=== PATIENT | male | born 1950 | race Caucasian/White ===

== ENCOUNTER 2019-08-05 06:30 | Day surgery (SDC) | payer MEDICARE ==
[2019-08-03 16:33] LABS: BASOPHILS % (AUTO) 0.6 % (0-1); EOSINOPHILS # (AUTO) 0.3 X10'3 (0-0.9); EOSINOPHILS % (AUTO) 3.4 % (0-6); HEMATOCRIT 41.4 % (42.0-52.0); HEMOGLOBIN 13.7 g/dl (14.0-17.9); LYMPHOCYTES # (AUTO) 3.2 X10'3 (1.1-4.8); LYMPHOCYTES % (AUTO) 36.9 % (21-51); MEAN CORPUSCULAR HEMOGLOBIN 31.5 PG (27.0-31.0); MEAN CORPUSCULAR HGB CONC 33.1 g/dL (33.0-36.5); MEAN CORPUSCULAR VOLUME 95.3 FL (78-98); MONOCYTES # (AUTO) 0.7 X10'3 (0-0.9); MONOCYTES % (AUTO) 8.5 % (2-12); NEUTROPHILS # (AUTO) 4.4 X10'3 (1.8-7.7); NEUTROPHILS % (AUTO) 50.6 % (42-75); PLATELET COUNT 298 X10'3 (140-440); RED BLOOD COUNT 4.34 X10'6 (4.70-6.10); RED CELL DISTRIBUTION WIDTH 20.5 % (11.5-14.5); WHITE BLOOD COUNT 8.8 X10'3 (4.5-11.0)
[2019-08-03 16:56] LABS: PARTIAL THROMBOPLASTIN TIME 28 SECONDS (22-32)
[2019-08-03 17:22] LABS: ALBUMIN 3.1 G/DL (3.4-5.0); ANION GAP 7 (8-16); BLOOD UREA NITROGEN 20 MG/DL (7-18); BUN/CREATININE RATIO 21.1 (5.4-32.0); CALCIUM 8.7 MG/DL (8.5-10.1); CHLORIDE 107 MMOL/L (99-107); CREATININE 0.95 MG/DL (0.60-1.10); GLUCOSE 74 MG/DL (70-104); POTASSIUM 3.6 MMOL/L (3.5-5.1); SODIUM 139 MMOL/L (135-145); eGFR 79 ML/MIN
[2019-08-03 17:57] LABS: PLATELET ESTIMATE NORMAL
[2019-08-03 17:58] LABS: ANISOCYTOSIS 2+; SPHEROCYTES FEW
[2019-08-05] VITALS (14 sets, daily range): BP systolic 96–137; BP diastolic 57–76
[~2019-08-05] VITALS: Ht 180.3 cm; Wt 79.2 kg
[~2019-08-05 06:30] MED LIST: ASPI81TA30 PO; CALC1TAB96 PO; GABA600T13 PO; HYDR-4353 PO; LISI40TA4 PO; MULT-38 PO; OMEGA
[2019-08-05] MEDS ORDERED: MIDAZolam 1mg/ml 10ml vial IV ONE (06:55)
[2019-08-05] MEDS ORDERED: fentaNYL/PF 50MCG/1 ML 2ML syringe IV ONE (06:55)
[2019-08-05] MEDS ORDERED: APIX5TAB3 PO (07:13)
[2019-08-05] MEDS ORDERED: DIGO125T PO (07:13)
[2019-08-05] MEDS ORDERED: AMIT-189 PO (07:13)
[2019-08-05] MEDS ORDERED: FURO-150 PO (07:13)
[2019-08-05] MEDS ORDERED: SOTA120T9 PO (07:13)
[2019-08-05] MEDS ORDERED: cannabis INH (07:13)
== END 2019-08-05 10:10 | disposition home or self-care (01) ==
LOC: SSTAY O 06:30
PROVIDERS: ATTEND Internal Medicine Interventional Cardiology
DX: I48.91 Unspecified atrial fibrillation (principal); I10 Essential (primary) hypertension; I35.0 Nonrheumatic aortic (valve) stenosis; I65.23 Occlusion and stenosis of bilateral carotid arteries; I34.0 Nonrheumatic mitral (valve) insufficiency; F17.290 Nicotine dependence, other tobacco product, uncomplicated; Z79.899 Other long term (current) drug therapy; Z88.5 Allergy status to narcotic agent; Z88.1 Allergy status to other antibiotic agents
CPT/HCPCS: 36415; 80048; 85025; 85610; 85730; 92960; 93005; 94760; J2250; J3010

== ENCOUNTER 2019-08-17 13:54 | Outpatient (CLI) | payer MEDICARE ==
[~2019-08-17] VITALS: Ht 180.3 cm; Wt 79.4 kg
[~2019-08-17 13:54] MED LIST changes: +AMIT-189 PO; +APIX5TAB3 PO; -ASPI81TA30 PO; +DIGO125T PO; +FURO-150 PO; -HYDR-4353 PO; -LISI40TA4 PO; +SOTA120T9 PO; +cannabis INH
[2019-08-17] MEDS ORDERED: albuterol 2.5 MG/3 ML nebule NEB ONE (14:30)
== END 2019-08-17 23:59 | disposition home or self-care (01) ==
LOC: RT 13:54
PROVIDERS: ATTEND Specialist
DX: J44.9 Chronic obstructive pulmonary disease, unspecified (principal); R06.02 Shortness of breath; J98.8 Other specified respiratory disorders
CPT/HCPCS: 94060; 94727; 94729; 94760

== ENCOUNTER 2020-12-27 12:30 | Inpatient (IN) | payer MEDICARE ==
[~2020-12-27] VITALS: Ht 177.8 cm; Wt 84.1 kg
[~2020-12-27 12:30] MED LIST changes: +CALC-1205 PO; -CALC1TAB96 PO
[2020-12-27 13:41] LABS: EOSINOPHILS % (AUTO) 0.2 % (0-6); HEMOGLOBIN 13.7 g/dl (14.0-17.9); LYMPHOCYTES # (AUTO) 1.2 X10'3 (1.1-4.8); MONOCYTES # (AUTO) 0.6 X10'3 (0-0.9); NEUTROPHILS # (AUTO) 4.5 X10'3 (1.8-7.7); RED BLOOD COUNT 3.88 X10'6 (4.70-6.10)
[2020-12-27 13:42] LABS: BASOPHILS # (AUTO) 0.2 X10'3 (0-0.2); HEMATOCRIT 41.8 % (42.0-52.0); MEAN CORPUSCULAR HEMOGLOBIN 35.3 PG (27.0-31.0); MEAN CORPUSCULAR HGB CONC 32.8 g/dL (33.0-36.5); MEAN CORPUSCULAR VOLUME 107.8 FL (78-98); MEAN PLATELET VOLUME 10.5 FL (7.4-10.4); PLATELET COUNT 203 X10'3 (140-440); RED CELL DISTRIBUTION WIDTH 14.4 % (11.5-14.5); WHITE BLOOD COUNT 6.4 X10'3 (4.5-11.0)
[2020-12-27 13:46] LABS: BASOPHILS % (AUTO) 0.2 % (0-1); LYMPHOCYTES % (AUTO) 19.5 % (21-51); MONOCYTES % (AUTO) 8.9 % (2-12); NEUTROPHILS % (AUTO) 71.2 % (42-75)
[2020-12-27 13:56] LABS: ALANINE AMINOTRANSFERASE 69 U/L (12-78); ALBUMIN/GLOBULIN RATIO 0.7 (1.1-1.5); ALKALINE PHOSPHATASE 117 IU/L (46-116); ANION GAP 10 (8-16); ASPARTATE AMINO TRANSFERASE 73 U/L (10-37); BILIRUBIN,TOTAL 1.8 MG/DL (0.1-1.0); BLOOD UREA NITROGEN 21 MG/DL (7-18); BUN/CREATININE RATIO 17.4 (5.4-32.0); CALCIUM 8.7 MG/DL (8.5-10.1); CHLORIDE 95 MMOL/L (99-107); CREATININE 1.21 MG/DL (0.60-1.10); GLUCOSE 109 MG/DL (70-104); POTASSIUM 4.5 MMOL/L (3.5-5.1); SODIUM 130 MMOL/L (135-145); TOTAL PROTEIN 7.1 G/DL (6.4-8.2); eGFR 60 ML/MIN
[2020-12-27 13:57] LABS: PARTIAL THROMBOPLASTIN TIME 35 SECONDS (22-32)
[2020-12-27 14:11] LABS: PLATELET ESTIMATE NORMAL
[2020-12-27 14:12] LABS: BURR CELLS 2+; LARGE PLATELETS FEW
[2020-12-27] MEDS ORDERED: iohexol 350MG/ML 100ml bottle IV ONE (15:35)
[2020-12-27] MEDS ORDERED: heparin 10,000 units/1 ML INJ IV ONE (19:35)
[2020-12-27] MEDS ORDERED: potassium Cl 20 mEq SR tablet PO PRN (19:35)
[2020-12-27] MEDS ORDERED: mag hydrox/Alum hydrox/simeth 30ml oral suspension PO PRN (19:35)
[2020-12-27] MEDS ORDERED: potassium Cl 40MEQ/1/2NS 520ml 520 ML IV PRN ×2 (19:35)
[2020-12-27] MEDS ORDERED: PERFLUTREN PROTEIN-A MICROSPHR (Optison) 0.22 MG/ML 3ML VIAL IV ONE (19:35)
[2020-12-27] MEDS ORDERED: ondansetron/PF 4mg/2ml inj IV PRN (19:35)
[2020-12-27] MEDS ORDERED: heparin 10,000 units/1 ML INJ IV PRN (19:35)
[2020-12-27] MEDS ORDERED: magnesium hydroxide 30ml (MOM) UD suspension PO PRN (19:35)
[2020-12-27] MEDS ORDERED: acetaminophen 325mg tablet PO PRN (19:35)
[2020-12-27] MEDS ORDERED: ALBU17AE26 IH (20:41)
[2020-12-27] MEDS ORDERED: OMEG1CAP46 PO (20:41)
[2020-12-27] MEDS ORDERED: METO100T14 PO (20:41)
[2020-12-27] MEDS ORDERED: ATOR40TA72 PO (20:41)
[2020-12-27] MEDS ORDERED: GABA300C PO (20:41)
[2020-12-27] MEDS ORDERED: PANT40TA54 PO (20:44)
[2020-12-27] MEDS ORDERED: albuterol 2.5 MG/3 ML nebule NEB PRN (21:35)
[2020-12-27] MEDS: K and/or MAG REPLACEMENT MC SCH (22:35)
[2020-12-27] MEDS: furosemide 10 MG/1 ML 10ml inj IV SCH (22:35)
[2020-12-27] MEDS: docusate sod 100mg capsule PO SCH (22:36)
[2020-12-27] MEDS: heparin 25,000 UNIT/250ml bag 250 ML IV SCH (22:50)
[2020-12-28] VITALS: BP 106/57
--- NOTE | 2020-12-28 05:20 | NUR ---
reviewed and edited SRN assessment.
--- NOTE | 2020-12-28 05:58 | NUR ---
Problems reprioritized. Patient report given, questions answered & plan of care reviewed with BETH Cortes. Addendum: 12/28/20 at 0644 by Carmen Aleman RN lulu not here, jet was given report.
[2020-12-28 06:25] LABS: EOSINOPHILS # (AUTO) 0.1 X10'3 (0-0.9); LYMPHOCYTES # (AUTO) 1.8 X10'3 (1.1-4.8); NEUTROPHILS # (AUTO) 4.5 X10'3 (1.8-7.7)
[2020-12-28 06:27] LABS: BASOPHILS % (AUTO) 0.5 % (0-1); EOSINOPHILS % (AUTO) 1.3 % (0-6); HEMATOCRIT 39.2 % (42.0-52.0); HEMOGLOBIN 12.9 g/dl (14.0-17.9); MEAN CORPUSCULAR HEMOGLOBIN 35.4 PG (27.0-31.0); MEAN CORPUSCULAR VOLUME 107.4 FL (78-98); MEAN PLATELET VOLUME 10.9 FL (7.4-10.4); MONOCYTES # (AUTO) 0.8 X10'3 (0-0.9); MONOCYTES % (AUTO) 10.8 % (2-12); NEUTROPHILS % (AUTO) 62.4 % (42-75); PLATELET COUNT 196 X10'3 (140-440); RED BLOOD COUNT 3.65 X10'6 (4.70-6.10); WHITE BLOOD COUNT 7.3 X10'3 (4.5-11.0)
[2020-12-28 06:37] LABS: ALANINE AMINOTRANSFERASE 74 U/L (12-78); ALBUMIN 2.9 G/DL (3.4-5.0); ALBUMIN/GLOBULIN RATIO 0.8 (1.1-1.5); ALKALINE PHOSPHATASE 120 IU/L (46-116); ANION GAP 7 (8-16); ASPARTATE AMINO TRANSFERASE 72 U/L (10-37); BILIRUBIN,TOTAL 1.2 MG/DL (0.1-1.0); BLOOD UREA NITROGEN 24 MG/DL (7-18); BUN/CREATININE RATIO 17.9 (5.4-32.0); CALCIUM 8.8 MG/DL (8.5-10.1); CHLORIDE 99 MMOL/L (99-107); CREATININE 1.34 MG/DL (0.60-1.10); GLUCOSE 131 MG/DL (70-104); POTASSIUM 3.8 MMOL/L (3.5-5.1); SODIUM 136 MMOL/L (135-145); TOTAL CARBON DIOXIDE 30.3 MMOL/L (24-32); TOTAL PROTEIN 6.6 G/DL (6.4-8.2); eGFR 53 ML/MIN
[2020-12-28 07:00] VITALS: BP 122/75
[2020-12-28] MEDS ORDERED: metoprolol tartrate 50mg tablet PO SCH (08:00)
[2020-12-28] MEDS: K and/or MAG REPLACEMENT MC SCH ×2 (08:00→20:00)
[2020-12-28] MEDS: furosemide 10 MG/1 ML 10ml inj IV SCH (08:26)
[2020-12-28] MEDS: docusate sod 100mg capsule PO SCH ×2 (08:26→19:54)
[2020-12-28] MEDS: pantoprazole 40mg Tablet.DR PO SCH (08:27)
[2020-12-28] MEDS ORDERED: ipratropium/albuterol 3ml nebule NEB PRN (09:10)
[2020-12-28] MEDS ORDERED: FLU VACC QS2021-22(6MOS UP)/PF 60 MCG/0.5 ML SYRINGE IM ONE (10:00)
[2020-12-28] MEDS ORDERED: pneumococcal 23-VAL P-sac vacc 25 mcg/0.5ml vial IMVAC ONE (10:00)
[2020-12-28] MEDS: heparin 25,000 UNIT/250ml bag 250 ML IV SCH ×2 (10:25→18:58)
[2020-12-28 11:00] VITALS: BP 102/68
[2020-12-28 11:27] LABS: PLATELET ESTIMATE NORMAL
[2020-12-28 11:28] LABS: GIANT PLATELET FEW; POLYCHROMASIA 1+
[2020-12-28 11:29] LABS: BURR CELLS 2+
[2020-12-28] MEDS: ipratropium/albuterol 3ml nebule NEB SCH ×3 (11:59→19:00)
[2020-12-28] MEDS: atorvastatin 20mg tablet PO SCH (13:46)
[2020-12-28 17:45] LABS: PARTIAL THROMBOPLASTIN TIME 99 SECONDS (22-32)
--- NOTE | 2020-12-28 17:53 | NUR ---
heparin drip was stopped at 17.50 , ptt was 99 , critical lab was documented
[2020-12-28] MEDS: carVEDilol 3.125mg tablet PO SCH (19:54)
[2020-12-28] MEDS: furosemide 40mg/4ml inj IV SCH (19:54)
[2020-12-28 22:00] VITALS: BP 134/83
[2020-12-29] VITALS: BP 113/71
--- NOTE | 2020-12-29 01:30 | NUR ---
reviewed and edited SRN assessment.
--- NOTE | 2020-12-29 06:21 | NUR ---
Problems reprioritized. Patient report given, questions answered & plan of care reviewed with BETH Santiago.
--- NOTE | 2020-12-29 06:39 | NUR ---
Patient in room [facility] 357B. I have received report from BETH NUNEZ and had the opportunity to ask questions and assume patient care.
[2020-12-29 07:00] VITALS: BP 122/92
[2020-12-29] MEDS: ipratropium/albuterol 3ml nebule NEB SCH ×4 (07:16→19:42)
[2020-12-29] MEDS: K and/or MAG REPLACEMENT MC SCH ×2 (08:00→20:00)
[2020-12-29 08:20] LABS: BASOPHILS % (AUTO) 0.5 % (0-1); EOSINOPHILS # (AUTO) 0.1 X10'3 (0-0.9); EOSINOPHILS % (AUTO) 1.2 % (0-6)
[2020-12-29 08:23] LABS: HEMATOCRIT 38.5 % (42.0-52.0); HEMOGLOBIN 12.8 g/dl (14.0-17.9); LYMPHOCYTES # (AUTO) 1.8 X10'3 (1.1-4.8); LYMPHOCYTES % (AUTO) 20.7 % (21-51); MEAN CORPUSCULAR HEMOGLOBIN 35.3 PG (27.0-31.0); MEAN CORPUSCULAR HGB CONC 33.3 g/dL (33.0-36.5); MEAN CORPUSCULAR VOLUME 106.3 FL (78-98); MEAN PLATELET VOLUME 10.6 FL (7.4-10.4); MONOCYTES # (AUTO) 0.8 X10'3 (0-0.9); MONOCYTES % (AUTO) 9.7 % (2-12); NEUTROPHILS # (AUTO) 5.8 X10'3 (1.8-7.7); NEUTROPHILS % (AUTO) 67.9 % (42-75); PLATELET COUNT 188 X10'3 (140-440); RED BLOOD COUNT 3.62 X10'6 (4.70-6.10); RED CELL DISTRIBUTION WIDTH 14.1 % (11.5-14.5); WHITE BLOOD COUNT 8.5 X10'3 (4.5-11.0)
[2020-12-29 08:43] LABS: ALANINE AMINOTRANSFERASE 71 U/L (12-78); ALBUMIN 2.9 G/DL (3.4-5.0); ALBUMIN/GLOBULIN RATIO 0.8 (1.1-1.5); ALKALINE PHOSPHATASE 121 IU/L (46-116); ANION GAP 7 (8-16); ASPARTATE AMINO TRANSFERASE 54 U/L (10-37); BILIRUBIN,TOTAL 1.1 MG/DL (0.1-1.0); BLOOD UREA NITROGEN 21 MG/DL (7-18); BUN/CREATININE RATIO 19.6 (5.4-32.0); CALCIUM 8.4 MG/DL (8.5-10.1); CHLORIDE 99 MMOL/L (99-107); CREATININE 1.07 MG/DL (0.60-1.10); GLUCOSE 99 MG/DL (70-104); SODIUM 138 MMOL/L (135-145); TOTAL CARBON DIOXIDE 32.3 MMOL/L (24-32); TOTAL PROTEIN 6.5 G/DL (6.4-8.2); eGFR 69 ML/MIN
[2020-12-29 08:46] LABS: POTASSIUM 2.6 MMOL/L (3.5-5.1)
--- NOTE | 2020-12-29 09:10 | NUR ---
CRITICAL POTASSIUM 2.6 WILL REPLACE PER PROTOCOL, DR FLORES
[2020-12-29] MEDS: potassium Cl 20 mEq SR tablet PO PRN ×3 (09:26→20:48)
[2020-12-29] MEDS: carVEDilol 3.125mg tablet PO SCH ×2 (09:27→20:47)
[2020-12-29] MEDS: lisinopril 2.5mg tablet PO SCH (09:27)
[2020-12-29] MEDS: docusate sod 100mg capsule PO SCH ×2 (09:27→20:47)
[2020-12-29] MEDS: atorvastatin 20mg tablet PO SCH (09:27)
[2020-12-29] MEDS: pantoprazole 40mg Tablet.DR PO SCH (09:28)
[2020-12-29] MEDS: furosemide 40mg/4ml inj IV SCH ×2 (09:28→20:47)
[2020-12-29] MEDS: spironolactone 25 MG tablet PO SCH (09:28)
[2020-12-29] MEDS: heparin 25,000 UNIT/250ml bag 250 ML IV SCH (09:51)
--- NOTE | 2020-12-29 09:53 | NUR ---
[employer] Insole Machine Evelyn was notified about the transfer order for PCU
--- NOTE | 2020-12-29 10:18 | NUR ---
Problems reprioritized. Patient report given, questions answered & plan of care reviewed with BETH MEZA FROM TELE.
[2020-12-29 11:40] VITALS: BP 120/80
--- NOTE | 2020-12-29 12:30 | NUR ---
report received from Pamela CAMPOS on med surg. all questions answered in preparation to assume pt care.
[2020-12-29] MEDS ORDERED: digoxin 250mcg/ml 2ml ampule IV ONE (12:40)
--- NOTE | 2020-12-29 12:50 | NUR ---
Pt tachycardic: 150's, mild SOB. Dr. Carrillo on telemetry floor and went in to see pt. discussed tachycardia, pt's blood clot in leg and lung, heparin drip, lung mass and tachycardia. Dr. Carrillo indicated intent to start pt on new med for rate control.
[2020-12-29 15:00] VITALS: BP 123/68
--- NOTE | 2020-12-29 18:43 | NUR ---
Problems reprioritized. Patient report given, questions answered & plan of care reviewed with Brittanie CAMPOS. Heparin running at 1100U/HR. PTT reviewed and within therapeutic range. pt alert. no sob. semi fowlers in the bed. no s/sx acute distress
[2020-12-29 19:00] VITALS: BP 120/70
[2020-12-29] MEDS: digoxin 250mcg/ml 2ml ampule IV SCH (20:47)
[2020-12-29 23:00] VITALS: BP 124/62
[2020-12-30] MEDS: ipratropium/albuterol 3ml nebule NEB SCH ×6 (01:11→23:00)
[2020-12-30] MEDS: digoxin 250mcg/ml 2ml ampule IV SCH (02:08)
[2020-12-30 03:00] VITALS: BP 116/69
[2020-12-30 06:00] VITALS: BP 134/84
--- NOTE | 2020-12-30 06:31 | NUR ---
Patient in room PCU 3024. I have received report from armando briones and had the opportunity to ask questions and assume patient care.
[2020-12-30 06:49] LABS: HEMOGLOBIN 13.4 g/dl (14.0-17.9); MEAN CORPUSCULAR HGB CONC 33.7 g/dL (33.0-36.5); MONOCYTES # (AUTO) 0.7 X10'3 (0-0.9)
[2020-12-30 06:52] LABS: BASOPHILS % (AUTO) 0.7 % (0-1); EOSINOPHILS # (AUTO) 0.2 X10'3 (0-0.9); EOSINOPHILS % (AUTO) 2.3 % (0-6); HEMATOCRIT 39.7 % (42.0-52.0); LYMPHOCYTES # (AUTO) 1.6 X10'3 (1.1-4.8); LYMPHOCYTES % (AUTO) 23.6 % (21-51); MEAN CORPUSCULAR HEMOGLOBIN 35.6 PG (27.0-31.0); MEAN CORPUSCULAR VOLUME 105.6 FL (78-98); MEAN PLATELET VOLUME 9.9 FL (7.4-10.4); MONOCYTES % (AUTO) 10.9 % (2-12); NEUTROPHILS # (AUTO) 4.3 X10'3 (1.8-7.7); NEUTROPHILS % (AUTO) 62.5 % (42-75); PLATELET COUNT 190 X10'3 (140-440); RED BLOOD COUNT 3.75 X10'6 (4.70-6.10); RED CELL DISTRIBUTION WIDTH 14.6 % (11.5-14.5); WHITE BLOOD COUNT 6.8 X10'3 (4.5-11.0)
[2020-12-30 07:15] LABS: ALANINE AMINOTRANSFERASE 59 U/L (12-78); ALBUMIN 2.7 G/DL (3.4-5.0); ALBUMIN/GLOBULIN RATIO 0.7 (1.1-1.5); ALKALINE PHOSPHATASE 121 IU/L (46-116); ANION GAP 6 (8-16); ASPARTATE AMINO TRANSFERASE 41 U/L (10-37); BILIRUBIN,TOTAL 1.1 MG/DL (0.1-1.0); BLOOD UREA NITROGEN 18 MG/DL (7-18); BUN/CREATININE RATIO 19.6 (5.4-32.0); CALCIUM 8.8 MG/DL (8.5-10.1); CHLORIDE 101 MMOL/L (99-107); CREATININE 0.92 MG/DL (0.60-1.10); GLUCOSE 90 MG/DL (70-104); POTASSIUM 3.6 MMOL/L (3.5-5.1); SODIUM 140 MMOL/L (135-145); TOTAL CARBON DIOXIDE 33.3 MMOL/L (24-32); TOTAL PROTEIN 6.4 G/DL (6.4-8.2); eGFR 82 ML/MIN
[2020-12-30] MEDS: pantoprazole 40mg Tablet.DR PO SCH (07:49)
[2020-12-30] MEDS: K and/or MAG REPLACEMENT MC SCH ×2 (08:00→20:00)
[2020-12-30] MEDS: furosemide 40mg/4ml inj IV SCH ×2 (09:29→19:56)
[2020-12-30] MEDS: docusate sod 100mg capsule PO SCH ×2 (09:31→19:55)
[2020-12-30] MEDS: lisinopril 2.5mg tablet PO SCH (09:31)
[2020-12-30] MEDS: carVEDilol 3.125mg tablet PO SCH (09:31)
[2020-12-30] MEDS: atorvastatin 20mg tablet PO SCH (09:31)
[2020-12-30] MEDS: spironolactone 25 MG tablet PO SCH (09:32)
[2020-12-30] MEDS ORDERED: carVEDilol 3.125mg tablet PO ONE (09:40)
[2020-12-30] MEDS ORDERED: digoxin 250mcg/ml 2ml ampule ONE (10:56)
[2020-12-30 11:00] VITALS: BP 108/72
[2020-12-30] MEDS ORDERED: digoxin 250mcg/ml 2ml ampule IV SCH (11:05)
[2020-12-30 13:08] LABS: PARTIAL THROMBOPLASTIN TIME > 139 SECONDS (22-32)
[2020-12-30 15:00] VITALS: BP 92/55
[2020-12-30 18:00] VITALS: BP 115/83
--- NOTE | 2020-12-30 18:17 | NUR ---
Problems reprioritized. Patient report given, questions answered & plan of care reviewed withBETH CLEANING .
[2020-12-30 19:14] LABS: PARTIAL THROMBOPLASTIN TIME 48 SECONDS (22-32)
[2020-12-30] MEDS: carvedilol 6.25mg tablet PO SCH (19:55)
[2020-12-31 00:50] LABS: EOSINOPHILS # (AUTO) 0.2 X10'3 (0-0.9); MONOCYTES # (AUTO) 0.8 X10'3 (0-0.9); NEUTROPHILS # (AUTO) 4.1 X10'3 (1.8-7.7)
[2020-12-31 00:52] LABS: BASOPHILS % (AUTO) 0.7 % (0-1); EOSINOPHILS % (AUTO) 2.5 % (0-6); HEMATOCRIT 44.9 % (42.0-52.0); HEMOGLOBIN 15.4 g/dl (14.0-17.9); LYMPHOCYTES # (AUTO) 1.8 X10'3 (1.1-4.8); LYMPHOCYTES % (AUTO) 26.4 % (21-51); MEAN CORPUSCULAR HEMOGLOBIN 36.1 PG (27.0-31.0); MEAN CORPUSCULAR HGB CONC 34.2 g/dL (33.0-36.5); MEAN CORPUSCULAR VOLUME 105.4 FL (78-98); MEAN PLATELET VOLUME 10.3 FL (7.4-10.4); MONOCYTES % (AUTO) 11.2 % (2-12); NEUTROPHILS % (AUTO) 59.2 % (42-75); PLATELET COUNT 201 X10'3 (140-440); RED BLOOD COUNT 4.27 X10'6 (4.70-6.10); RED CELL DISTRIBUTION WIDTH 14.1 % (11.5-14.5); WHITE BLOOD COUNT 6.9 X10'3 (4.5-11.0)
[2020-12-31 01:02] LABS: ALANINE AMINOTRANSFERASE 61 U/L (12-78); ALBUMIN/GLOBULIN RATIO 0.7 (1.1-1.5); ALKALINE PHOSPHATASE 142 IU/L (46-116); ANION GAP 7 (8-16); ASPARTATE AMINO TRANSFERASE 40 U/L (10-37); BILIRUBIN,TOTAL 1.2 MG/DL (0.1-1.0); BLOOD UREA NITROGEN 17 MG/DL (7-18); BUN/CREATININE RATIO 16.8 (5.4-32.0); CALCIUM 8.9 MG/DL (8.5-10.1); CHLORIDE 99 MMOL/L (99-107); CREATININE 1.01 MG/DL (0.60-1.10); GLUCOSE 104 MG/DL (70-104); POTASSIUM 3.1 MMOL/L (3.5-5.1); SODIUM 139 MMOL/L (135-145); TOTAL CARBON DIOXIDE 33.4 MMOL/L (24-32); TOTAL PROTEIN 7.1 G/DL (6.4-8.2); eGFR 73 ML/MIN
[2020-12-31 02:00] VITALS: BP 111/69
[2020-12-31] MEDS: heparin 25,000 UNIT/250ml bag 250 ML IV SCH ×2 (03:32→06:55)
[2020-12-31 06:00] VITALS: BP 120/70
[2020-12-31] MEDS: ipratropium/albuterol 3ml nebule NEB SCH ×2 (07:29→11:00)
[2020-12-31] MEDS ORDERED: digoxin 250mcg (0.25mg) tablet PO SCH (08:00)
[2020-12-31] MEDS: K and/or MAG REPLACEMENT MC SCH (08:00)
[2020-12-31] MEDS: atorvastatin 20mg tablet PO SCH (08:13)
[2020-12-31] MEDS: lisinopril 2.5mg tablet PO SCH (08:13)
[2020-12-31] MEDS: carvedilol 6.25mg tablet PO SCH (08:13)
[2020-12-31] MEDS: pantoprazole 40mg Tablet.DR PO SCH (08:13)
[2020-12-31] MEDS: docusate sod 100mg capsule PO SCH (08:14)
[2020-12-31] MEDS: furosemide 40mg/4ml inj IV SCH (08:14)
[2020-12-31] MEDS: spironolactone 25 MG tablet PO SCH (08:46)
[2020-12-31] MEDS ORDERED: potassium Cl 20 mEq SR tablet PO PRN ×2 (10:25)
[2020-12-31] MEDS ORDERED: magnesium Cl slow-release 64mg tablet PO PRN (10:25)
[2020-12-31] MEDS ORDERED: magnesium 4gm in 100ml NS 100 ML IV PRN (10:25)
[2020-12-31] MEDS ORDERED: potassium Cl 40MEQ/1/2NS 520ml 520 ML IV PRN (10:25)
--- NOTE | 2020-12-31 10:27 | NUR ---
PAGER ID: [phone] MESSAGE: [email or web address], I RENEWED THE K+ AND MAG REPLACEMENT FOR 3024B CALEB DURÁN
[2020-12-31 11:00] VITALS: BP 135/69
[2020-12-31] MEDS ORDERED: dabigatran 150mg capsule PO ONE (12:10)
[2020-12-31] MEDS ORDERED: FURO-150 PO (12:18)
[2020-12-31] MEDS ORDERED: LISI2.5T14 PO (12:18)
[2020-12-31] MEDS ORDERED: SPIR25TA PO (12:18)
[2020-12-31] MEDS ORDERED: CARV6.253 PO (12:18)
[2020-12-31] MEDS ORDERED: DIGO125T PO (12:18)
[2020-12-31] MEDS ORDERED: DABI150C PO (12:18)
--- NOTE | 2020-12-31 14:19 | NUR ---
Initial: Pt admitted w/ increasing dyspnea on exertion per EMR. Pt is able to eat well, mostly 100% of meals on Regular diet meeting needs. LBM 12/29 receiving routine colace. No nutrition intervention implemented at this time, will continue to monitor. Recs: 1. Continue Regular diet as tolerated 2. Bowel care per rx 3. Weekly wts Addendum: 12/31/20 at [address] Amended: Links added.
[2020-12-31] MEDS ORDERED: K and/or MAG REPLACEMENT MC SCH (20:00)
== END 2020-12-31 15:42 | disposition home health service (06) | DRG 175 ==
LOC: ER 12:30 → ED HOLD 19:34 → SUR 3N 23:15 → PCU 3S 12-29 11:23
PROVIDERS: ADMIT Internal Medicine; ATTEND Family Medicine
PROC: B32T1ZZ Computerized Tomography (CT Scan) of Left Pulmonary Artery using Low Osmolar Contrast (ICD-10-PCS; 2020-12-27)
PROC: B3201ZZ Computerized Tomography (CT Scan) of Thoracic Aorta using Low Osmolar Contrast (ICD-10-PCS; 2020-12-27)
PROC: B32S1ZZ Computerized Tomography (CT Scan) of Right Pulmonary Artery using Low Osmolar Contrast (ICD-10-PCS; 2020-12-27)
PROC: 3E0234Z Introduction of Serum, Toxoid and Vaccine into Muscle, Percutaneous Approach (ICD-10-PCS; principal; 2020-12-28)
PROC: 3E02340 Introduction of Influenza Vaccine into Muscle, Percutaneous Approach (ICD-10-PCS; 2020-12-28)
DX: I26.99 Other pulmonary embolism without acute cor pulmonale (principal); J18.9 Pneumonia, unspecified organism; I48.20 Chronic atrial fibrillation, unspecified; N17.9 Acute kidney failure, unspecified; E87.1 Hypo-osmolality and hyponatremia; J44.0 Chronic obstructive pulmonary disease with (acute) lower respiratory infection; I50.20 Unspecified systolic (congestive) heart failure; I82.461 Acute embolism and thrombosis of right calf muscular vein; I35.0 Nonrheumatic aortic (valve) stenosis; N18.9 Chronic kidney disease, unspecified; Z96.643 Presence of artificial hip joint, bilateral; R74.01 Elevation of levels of liver transaminase levels; Z96.653 Presence of artificial knee joint, bilateral; G89.29 Other chronic pain; D64.9 Anemia, unspecified; E78.5 Hyperlipidemia, unspecified; F17.210 Nicotine dependence, cigarettes, uncomplicated; R09.02 Hypoxemia; Z20.822 Contact with and (suspected) exposure to COVID-19; Z79.01 Long term (current) use of anticoagulants; Z87.19 Personal history of other diseases of the digestive system; Z23 Encounter for immunization; Z88.1 Allergy status to other antibiotic agents; Z79.899 Other long term (current) drug therapy; Z71.6 Tobacco abuse counseling
CPT/HCPCS: 36415; 71045; 71275; 80053; 80162; 83880; 84145; 84484; 85008; 85025; 85610; 85730; 87081; 87635; 90732; 93005; 93306; 93970; 94640; 94760; 99285; C9803; G0378; J1160; J1644; J1940; Q9967

== ENCOUNTER 2021-01-29 11:27 | Day surgery (SDC) | payer MEDICARE ==
[2021-01-24 11:20] LABS: BASOPHILS % (AUTO) 0.5 % (0-1); EOSINOPHILS # (AUTO) 0.2 X10'3 (0-0.9); EOSINOPHILS % (AUTO) 2.9 % (0-6); LYMPHOCYTES # (AUTO) 2.3 X10'3 (1.1-4.8); LYMPHOCYTES % (AUTO) 26.3 % (21-51); MEAN CORPUSCULAR HEMOGLOBIN 34.4 PG (27.0-31.0); MEAN CORPUSCULAR HGB CONC 33.3 g/dL (33.0-36.5); MEAN CORPUSCULAR VOLUME 103.1 FL (78-98); MEAN PLATELET VOLUME 9.3 FL (7.4-10.4); MONOCYTES # (AUTO) 0.9 X10'3 (0-0.9); MONOCYTES % (AUTO) 10.3 % (2-12); NEUTROPHILS # (AUTO) 5.2 X10'3 (1.8-7.7); PLATELET COUNT 203 X10'3 (140-440); RED BLOOD COUNT 4.65 X10'6 (4.70-6.10); RED CELL DISTRIBUTION WIDTH 14.1 % (11.5-14.5); WHITE BLOOD COUNT 8.6 X10'3 (4.5-11.0)
[2021-01-24 11:25] LABS: PARTIAL THROMBOPLASTIN TIME 27 SECONDS (22-32)
[2021-01-24 11:26] LABS: ALBUMIN 3.3 G/DL (3.4-5.0); ANION GAP 8 (8-16); BLOOD UREA NITROGEN 15 MG/DL (7-18); BUN/CREATININE RATIO 16.7 (5.4-32.0); CALCIUM 8.8 MG/DL (8.5-10.1); CHLORIDE 102 MMOL/L (99-107); GLUCOSE 98 MG/DL (70-104); POTASSIUM 4.3 MMOL/L (3.5-5.1); SODIUM 137 MMOL/L (135-145); TOTAL CARBON DIOXIDE 26.8 MMOL/L (24-32); eGFR 84 ML/MIN
[~2021-01-29] VITALS: Ht 180.3 cm; Wt 73.5 kg
[2021-01-29] VITALS (8 sets, daily range): BP systolic 101–127; BP diastolic 54–87
[~2021-01-29 11:27] MED LIST changes: +ALBU17AE26 IH; -AMIT-189 PO; -APIX5TAB3 PO; +ATOR40TA72 PO; +CARV6.253 PO; +DABI150C PO; +GABA300C PO; -GABA600T13 PO; +LISI2.5T14 PO; +OMEG1CAP46 PO; -OMEGA; +PANT40TA54 PO; -SOTA120T9 PO; +SPIR25TA PO; -cannabis INH
[2021-01-29] MEDS ORDERED: normal saline 1,000 ML IV SCH (11:45)
[2021-01-29] MEDS ORDERED: LORazepam 0.5 MG tablet PO PRN (11:45)
[2021-01-29] MEDS ORDERED: diphenhydrAMINE 25mg capsule PO PRN (11:45)
[2021-01-29] MEDS ORDERED: LAN0.125T PO (12:10)
[2021-01-29] MEDS ORDERED: APIX5TAB3 PO (12:10)
[2021-01-29] MEDS ORDERED: FURO20TA4 PO (12:10)
[2021-01-29] MEDS ORDERED: LISI2.5T14 PO (12:10)
[2021-01-29] MEDS ORDERED: SPIR25TA5 PO (12:10)
[2021-01-29] MEDS ORDERED: CARV6.253 PO (12:10)
[2021-01-29] MEDS ORDERED: GABA300C PO (12:10)
[2021-01-29] MEDS ORDERED: VITAMIN D (12:10)
[2021-01-29] MEDS ORDERED: nitroGLYCERIN-Tridil 50MG/D5W 250 ML IV ONE (13:21)
[2021-01-29] MEDS ORDERED: midazolam 1 mg/ML 2ml injection ONE (13:21)
[2021-01-29] MEDS ORDERED: iohexol 350MG/ML 100ml bottle IV ONE (13:21)
[2021-01-29] MEDS ORDERED: LIDOcaine 1% (10mg/ml)w/preservative injection 20ml MDV ONE (13:21)
[2021-01-29] MEDS ORDERED: fentaNYL/PF 50MCG/1 ML 2ML syringe ONE (13:21)
[2021-01-29] MEDS ORDERED: verapamil 2.5 mg/ml inj IV ONE (13:21)
[2021-01-29] MEDS ORDERED: heparin 1,000unit/ml 10ml vial 10 ML ONE (13:21)
[2021-01-29] MEDS ORDERED: proCHLORperazine 10 MG/2 ml inj IV PRN (15:30)
[2021-01-29] MEDS ORDERED: OXAZEpam 15mg capsule PO PRN (15:30)
[2021-01-29] MEDS ORDERED: ondansetron/PF 4mg/2ml inj IV PRN (15:30)
== END 2021-01-29 17:30 | disposition home or self-care (01) ==
LOC: SSTAY O 11:27
PROVIDERS: ATTEND Internal Medicine Interventional Cardiology
DX: I35.0 Nonrheumatic aortic (valve) stenosis (principal); I25.10 Atherosclerotic heart disease of native coronary artery without angina pectoris; I10 Essential (primary) hypertension; I48.91 Unspecified atrial fibrillation; I65.29 Occlusion and stenosis of unspecified carotid artery; I42.9 Cardiomyopathy, unspecified; Z87.891 Personal history of nicotine dependence; Z79.899 Other long term (current) drug therapy; Z79.01 Long term (current) use of anticoagulants; Z88.1 Allergy status to other antibiotic agents
CPT/HCPCS: 36415; 80048; 85025; 85610; 85730; 93005; 93454; 99152; C1769; C1894; J1644; J2001; J2250; J3010; J7030; Q0163; Q9967; A4620; A5120; J3490

== ENCOUNTER 2021-03-01 09:42 | Outpatient (CLI) | payer MEDICARE ==
[~2021-03-01] VITALS: Ht 180.3 cm; Wt 77.1 kg
[~2021-03-01 09:42] MED LIST changes: +APIX5TAB3 PO; -DABI150C PO; -DIGO125T PO; -FURO-150 PO; +FURO20TA4 PO; +LAN0.125T PO; -OMEG1CAP46 PO; -SPIR25TA PO; +SPIR25TA5 PO; +VITAMIN D
[2021-03-01 10:20] LABS: BASOPHILS # (AUTO) 0.1 X10'3 (0-0.2); BASOPHILS % (AUTO) 0.6 % (0-1); EOSINOPHILS # (AUTO) 0.2 X10'3 (0-0.9); EOSINOPHILS % (AUTO) 2.8 % (0-6); HEMATOCRIT 40.9 % (42.0-52.0); HEMOGLOBIN 14.1 g/dl (14.0-17.9); LYMPHOCYTES # (AUTO) 2.4 X10'3 (1.1-4.8); LYMPHOCYTES % (AUTO) 27.9 % (21-51); MEAN CORPUSCULAR HEMOGLOBIN 34.6 PG (27.0-31.0); MEAN CORPUSCULAR HGB CONC 34.5 g/dL (33.0-36.5); MEAN CORPUSCULAR VOLUME 100.4 FL (78-98); MEAN PLATELET VOLUME 8.6 FL (7.4-10.4); MONOCYTES # (AUTO) 0.8 X10'3 (0-0.9); MONOCYTES % (AUTO) 8.6 % (2-12); NEUTROPHILS # (AUTO) 5.2 X10'3 (1.8-7.7); NEUTROPHILS % (AUTO) 60.1 % (42-75); PLATELET COUNT 278 X10'3 (140-440); RED BLOOD COUNT 4.07 X10'6 (4.70-6.10); RED CELL DISTRIBUTION WIDTH 14.8 % (11.5-14.5); WHITE BLOOD COUNT 8.7 X10'3 (4.5-11.0)
[2021-03-01 10:32] LABS: PARTIAL THROMBOPLASTIN TIME 28 SECONDS (22-32)
[2021-03-01 10:39] LABS: ALANINE AMINOTRANSFERASE 29 U/L (12-78); ALBUMIN 3.5 G/DL (3.4-5.0); ALBUMIN/GLOBULIN RATIO 0.8 (1.1-1.5); ALKALINE PHOSPHATASE 88 IU/L (46-116); ANION GAP 5 (8-16); ASPARTATE AMINO TRANSFERASE 25 U/L (10-37); BILIRUBIN,TOTAL 0.8 MG/DL (0.1-1.0); BLOOD UREA NITROGEN 23 MG/DL (7-18); BUN/CREATININE RATIO 21.3 (5.4-32.0); CALCIUM 9.4 MG/DL (8.5-10.1); CHLORIDE 104 MMOL/L (99-107); CREATININE 1.08 MG/DL (0.60-1.10); GLUCOSE 103 MG/DL (70-104); POTASSIUM 4.8 MMOL/L (3.5-5.1); SODIUM 139 MMOL/L (135-145); TOTAL CARBON DIOXIDE 29.8 MMOL/L (24-32); TOTAL PROTEIN 8.1 G/DL (6.4-8.2); eGFR 68 ML/MIN
[2021-03-01] MEDS ORDERED: IODIXANOL 320 MG/ML INFUS..BTL 100ML IV ONE (10:43)
[2021-03-01] MEDS ORDERED: IODIXANOL 320 MG/ML INFUS..BTL 50ML IV ONE (10:43)
[2021-03-01] MEDS ORDERED: albuterol 2.5 MG/3 ML nebule NEB ONE (12:00)
[2021-03-01 12:21] LABS: ABG BASE EXCESS 0.1 mmol/L (-2.0-2.0); ABG PCO2 (T) 28.7 mmHg (35.0-48.0); ABG PO2 (T) 78.1 mmHg (75.0-100.0); ALLEN'S TEST Yes; FCOHb 1.5 % (0.0-3.9); FMetHb 0.3 % (0.0-1.5); FO2Hb 94.3 % (94-97); TOTAL HEMOGLOBIN 14.4 G/dl (14.0-18.0)
== END 2021-03-01 23:59 | disposition home or self-care (01) ==
LOC: RAD 09:42
PROVIDERS: ATTEND Internal Medicine Cardiovascular Disease
DX: J44.9 Chronic obstructive pulmonary disease, unspecified (principal); R94.2 Abnormal results of pulmonary function studies; M46.1 Sacroiliitis, not elsewhere classified; M47.816 Spondylosis without myelopathy or radiculopathy, lumbar region; K86.89 Other specified diseases of pancreas; I70.8 Atherosclerosis of other arteries; K55.1 Chronic vascular disorders of intestine; I35.8 Other nonrheumatic aortic valve disorders; N62 Hypertrophy of breast; I25.10 Atherosclerotic heart disease of native coronary artery without angina pectoris; I70.0 Atherosclerosis of aorta; M47.814 Spondylosis without myelopathy or radiculopathy, thoracic region; Z20.822 Contact with and (suspected) exposure to COVID-19
CPT/HCPCS: 36415; 36600; 71046; 71275; 74174; 80053; 82803; 85018; 85025; 85610; 85730; 87635; 94060; 94727; 94729; 94760; C9803; Q9967

== ENCOUNTER 2023-11-23 13:00 | Emergency (ER) | payer MEDICARE ==
[~2023-11-23] VITALS: Ht 177.8 cm; Wt 79.5 kg
[~2023-11-23 13:00] MED LIST changes: -ALBU17AE26 IH; -CALC-1205 PO; +DULO30CA52 PO; -MULT-38 PO; -VITAMIN D
[2023-11-23 13:23] LABS: EOSINOPHILS # (AUTO) 0.1 X10'3 (0-0.9); EOSINOPHILS % (AUTO) 1.9 % (0-6); HEMOGLOBIN 12.1 g/dl (14.0-17.9); LYMPHOCYTES # (AUTO) 1.7 X10'3 (1.1-4.8); MONOCYTES # (AUTO) 0.7 X10'3 (0-0.9); NEUTROPHILS # (AUTO) 4.9 X10'3 (1.8-7.7); WHITE BLOOD COUNT 7.5 X10'3 (4.5-11.0)
[2023-11-23 13:25] LABS: BASOPHILS % (AUTO) 0.5 % (0-1); HEMATOCRIT 35.9 % (42.0-52.0); LYMPHOCYTES % (AUTO) 23.1 % (21-51); MEAN CORPUSCULAR HEMOGLOBIN 37.2 PG (27.0-31.0); MEAN CORPUSCULAR HGB CONC 33.8 g/dL (33.0-36.5); MEAN CORPUSCULAR VOLUME 110.2 FL (78-98); MEAN PLATELET VOLUME 9.1 FL (7.4-10.4); MONOCYTES % (AUTO) 9.2 % (2-12); NEUTROPHILS % (AUTO) 65.3 % (42-75); PLATELET COUNT 216 X10'3 (140-440); RED BLOOD COUNT 3.26 X10'6 (4.70-6.10); RED CELL DISTRIBUTION WIDTH 13.6 % (11.5-14.5)
[2023-11-23 13:40] LABS: ALBUMIN 3.2 G/DL (3.4-5.0); ANION GAP 9 (8-16); BLOOD UREA NITROGEN 14 MG/DL (7-18); BUN/CREATININE RATIO 12.8 (10.0-20.0); CALCIUM 9.4 MG/DL (8.5-10.1); CHLORIDE 101 MMOL/L (99-107); CREATININE 1.09 MG/DL (0.60-1.10); GLUCOSE 97 MG/DL (70-104); POTASSIUM 4.1 MMOL/L (3.5-5.1); PRO BRAIN NATRIURETIC PEPTIDE 4262 PG/ML (0-125); SODIUM 134 MMOL/L (135-145); TOTAL CARBON DIOXIDE 23.7 MMOL/L (24-32); eCRCL 64 ML/MIN; eGFR 67 ML/MIN
[2023-11-23 13:45] LABS: LARGE PLATELETS FEW; PLATELET ESTIMATE NORMAL
[2023-11-23 14:36] VITALS: TEMP 98.2
[2023-11-23 17:46] VITALS: BP 131/86; PULSE 105; RESP 16; O2SAT 96
== END 2023-11-23 17:48 | disposition home or self-care (01) ==
LOC: ER 13:01
DX: I48.91 Unspecified atrial fibrillation (principal); J44.9 Chronic obstructive pulmonary disease, unspecified; I50.9 Heart failure, unspecified; Z88.1 Allergy status to other antibiotic agents; Z79.899 Other long term (current) drug therapy
CPT/HCPCS: 36415; 71045; 80048; 83880; 84484; 85008; 85025; 93005; 99285

== ENCOUNTER 2025-01-17 17:11 | Outpatient (CLI) | payer MEDICARE ==
--- NOTE | 2025-01-17 19:13 | RADIOLOGY REPORT ---
EXAM: MR MRI HEAD INDICATION: SEPTIC ARTERIAL EMBOLISM TECHNIQUE: Multiplanar, multisequence imaging of the brain without contrast. COMPARISON: None FINDINGS: [PARENCHYMA]: Significant areas of diffusion restriction scattered throughout the mckenzie matter of bilateral anterior frontal lobes with the additional areas of white matter of the left posterior parietal to occipital lobe. Additional mckenzie matter infarction of the right occipital lobe and possibly left cerebellar hemisphere. Additional involvement of the right posterior temporal lobe. 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 Area demonstrates T1 hyperintensity in the left cerebellar hemisphere which may represent blood products. No mass effect or herniation. [VENTRICLES]: No hydrocephalus. [EXTRA-AXIAL SPACES]: No extra-axial fluid collections. [FLOW VOIDS]: The flow voids are intact. [EXTRA-CRANIAL STRUCTURES]: The bony structures are intact. Visualized portions of the paranasal sinuses and mastoid air cells are essentially clear. IMPRESSION: 1. Multifocal areas of significant diffusion restriction as detailed above which may be compatible with the given history of septic emboli. 2. Question area of hemorrhage of the left cerebellar hemisphere given T1 hyperintensity
[2025-01-17] MEDS ORDERED: GADOTERATE MEGLUMINE 7.5 MMOL/15 ML VIAL IV ONE (19:15)
--- NOTE | 2025-01-17 21:31 | RADIOLOGY REPORT ---
EXAM: MR MRI C SPINE INDICATION: SEPTIC ARTERIAL EMBOLISM TECHNIQUE: Multiplanar, multisequence imaging of the cervical spine without contrast. COMPARISON: None no drainable fluid collection. FINDINGS: [ANATOMY]: Straightening of the normal cervical lordosis, which may be seen in the setting of patient positioning versus muscular spasm. [BONES]: The vertebral bodies are normal in height, alignment, and marrow signal. opposing Modic degenerative change at C6-7. [CERVICAL CORD]: No abnormal cervical cord signal multilevel effacement of the ventral and dorsal thecal sacs most conspicuous at C5-6 and C6-7 [DISCS]: Diffuse disc desiccation. [FACETS]: Unremarkable [OTHER]: Trace amount of possible prevertebral edema. The visualized paraspinal soft tissues are normal. [C2-C3]: Ligamentum flavum buckling. Intervertebral disc height loss. [C3-C4]: Intervertebral disc height loss with trace possible anterolisthesis. Asymmetric [id number] left foraminal narrowing [C4-C5]: Severe bilateral foraminal narrowing [C5-C6]: Intervertebral disc height loss. Ligamentum flavum buckling. Severe left foraminal narrowing [C6-C7]: Ligamentum flavum buckling. Intervertebral disc height loss. Severe bilateral foraminal narrowing [C7-T1]: Unremarkable. IMPRESSION: 1. No MR evidence of discitis osteomyelitis. 2. Multilevel degenerative change of the cervical spine. 3. No abnormal cervical cord signal. 4. Multilevel neural foraminal narrowing. 5. Minimal prevertebral edema of indeterminate etiology.
== END 2025-01-17 23:59 | disposition home or self-care (01) ==
LOC: MRI 17:11
PROVIDERS: ATTEND Emergency Medicine
DX: M47.812 Spondylosis without myelopathy or radiculopathy, cervical region (principal); I63.89 Other cerebral infarction; M48.02 Spinal stenosis, cervical region; M40.46 Postural lordosis, lumbar region; I76 Septic arterial embolism
CPT/HCPCS: 70553; 72156; A9575